=== PATIENT | female | born 1950 | race Two or more races ===

== ENCOUNTER 2016-07-06 15:44 | Inpatient (IN) | payer MEDICARE, MEDICAID ==
[~2016-07-06] VITALS: Ht 157.5 cm; Wt 65.3 kg
--- NOTE | ~2016-07-06 | CON ---
PATIENT'S NAME: TAL CARMEN [facility] AGE: 65 Y [address] ROOM: [address]6302 [place], [place] [address] LOCATION: GPCU ADMIT DATE: 07/06/2016 Consultation DISCHARGE DATE: FAMILY PHYSICIAN: Miguel Mckeon MD ATTENDING PHYSICIAN: Ben Wall DATE OF CONSULTATION: 07/07/2016 REFERRING PHYSICIAN: Gina Silva MD PATIENT OF: Miguel Mckeon MD Dear Dr. Mckeon: Thank you for asking me to see Ms. Carmen, who is a 65-year-old female patient. I had seen her for some shortness of breath, low heart rate, and dizziness as an outpatient in January. She came to the office with a friend and the history was mostly from her. She is mildly mentally challenged and does not recall events to the fullest details. It appears as if she has been falling for the past 3 years because that is a duration she has been using a cane. She does not volunteer any symptoms at all. Even on directly questioning whether she has any dizziness, she denied any dizziness until I specifically asked that "you had mentioned about dizziness in your referral." Then, she recollect having off and on episodes of dizziness that seemed to occur when she is up and walking in her kitchen and she will go and sit down and get the dizziness to go away shortly. She does not think she has ever passed out, but she seemed to have had several falls. Most of them appears to be accidental or mechanical more so than anything else. She denies lightheadedness. She does notice some palpitations, but these are not recurring to any great extent. She does not feel dizzy when she is having palpitations. She denies any chest pains. She is currently in functional class II-III. She apparently goes grocery shopping and has to stop several times because of shortness of breath. There is no paroxysmal nocturnal dyspnea or orthopnea. She has some minimal ankle swelling at times. She does not have any structured exercise program, but walks around a parking lot in her apartment twice a day for about 5 minutes each. The patient has history of diabetes. She smokes about three cigarettes a day. Her cholesterol is unknown. Her blood pressure has been variable. She was found to have slow heart rate and was the main reason I am seeing her. There is significant family history of premature coronary artery disease. There is no prior history of RI or angina or nitroglycerin use. There is no history of rheumatic fever, heart murmur, heart failure, dilated [facility] AGE: 65 Y [address] ROOM: [place] [address] LOCATION: GPCU ADMIT DATE: 07/06/2016 Consultation DISCHARGE DATE: FAMILY PHYSICIAN: Miguel Mckeon MD ATTENDING PHYSICIAN: Ben Wall or enlarged heart. She does have "erratic heartbeats." MEDICATIONS: Her medications at this time include: 1. Aspirin 81 mg a day. 2. Fosamax 70 mg a day. 3. Lipitor 40 mg a day. 4. Lexapro 10 mg a day. 5. Lantus 10 units a day. 6. Metformin 500 b.i.d. 7. Omeprazole 20 mg a day. 8. Calcium 500 t.i.d. 9. Tramadol 50 one to two every 4 hours as needed. ALLERGIES: NO KNOWN DRUG ALLERGIES. PAST MEDICAL HISTORY: 1. History of mildly challenged mentally. 2. Anxiety and depression. 3. GERD. 4. History of hemorrhoid surgery. 5. History of eye surgery. 6. Surgery on her esophagus. ALLERGIES: NO KNOWN DRUG ALLERGIES. SOCIAL HISTORY: The patient lives alone in. She denies abusing alcohol. She does smoke a few cigarettes a day. Her appetite and weight have been stable. Sleep is fair. FAMILY HISTORY: Positive for premature coronary artery disease in two brothers. REVIEW OF SYSTEMS: 1. Multiple falls as mentioned earlier. 2. Some overall weakness of unknown etiology. PHYSICAL EXAMINATION: VITAL SIGNS: Her blood pressure is anywhere between 80 systolic to 120 systolic. Heart rate is anywhere between the low 30s to mid 40s. Respiration is 16. Afebrile. Oxygen saturation is 95% on room air. HEENT: Reveals bilateral ptosis. NECK: Unremarkable. PATIENT'S NAME: [facility]CE[facility] AGE: 65 Y [address] ROOM: [place] [address] LOCATION: GPCU ADMIT DATE: 07/06/2016 Consultation DISCHARGE DATE: FAMILY PHYSICIAN: Miguel Mckeon MD ATTENDING PHYSICIAN: Ben Wall LUNGS: Clear to auscultation. HEART: Reveals regular rhythm and rate. ABDOMEN: Soft. EXTREMITIES: Reveal no edema. CENTRAL NERVOUS SYSTEM: Overall appears to be intact. The patient has recently fallen on her right wrist which was the one of the reasons why she got admitted. ASSESSMENT: Severe bradycardia of which she is possibly mildly symptomatic with dizziness. She sometimes runs low blood pressures as well. She is not on any AV blocking agents. In January, she did have thyroid function studies done which was normal. Her echocardiogram done in January showed normal EF with mild LVH. She had a stress test done which showed normal EF and mild small distal anterior apical moderate fixed defect consistent with soft tissue attenuation. She also had a 48-hour Holter monitor which essentially revealed regular sinus rhythm ranging from 42 beats a minute to 111 beats a minute without any significant pauses or SVEs. She had a couple of short runs of SVT at a rate of 110 beats a minute or so. Based on the evaluation in January, I did not perceive any further. Today, clearly, her heart rate is even lower than it was in January 2016. Given her overall weakness as well as ptosis, I will ask Dr. Castanon to take a look at it to make sure that we are not missing any neuromuscular disorders, some of which may have some relation to significant bradycardia as well. It is very likely that she might need a permanent pacemaker placement before she is discharged. Her UA looks as if she has urinary tract infection, and we will wait for the antibiotics take effect for a day or two before proceeding with pacemaker placement. Again, I appreciate this opportunity to participate in the care of Ms. Carmen. MD PRECIOUS MANZANARES/dalia /[id number] d: 07/07/169 t: 07/12/16 1453, CONSULTATION REPORT
--- NOTE | ~2016-07-06 | HP ---
PATIENT'S NAME: KEVIN ZENGHA [facility] AGE: 65 Y [address] ROOM: [place] [address] LOCATION: GPCU ADMIT DATE: 07/06/2016 History & Physical DISCHARGE DATE: FAMILY PHYSICIAN: Miguel Mckeon MD ATTENDING PHYSICIAN: Kelley Wall DATE OF SERVICE: CHIEF COMPLAINT: Fall. HISTORY OF PRESENT ILLNESS: The patient is a 65-year-old female who came in to the emergency room with complaints of wrist pain after sustaining a fall. States she was getting up from the bathroom and tripped on her pajamas. Absolutely denies any type of syncopal episode, any lightheadedness, etc. States that it was purely a mechanical fall. She did have x-rays in the ER which apparently checked out wrist mtz and that her blood pressure systolic in the 80s over 50s and was having bradycardic episodes into the 50s. Apparently, she has been seeing Dr. Silva for further workup of this. She is not symptomatic though when she is in the 50s. She is not very compliant with her trips in to see Dr. Miguel Mckeon who is her primary care doctor. PAST MEDICAL HISTORY: Significant for GERD; anxiety; diverticulosis; type 2 diabetes mellitus, which is insulin dependent; medication noncompliance; hyperlipidemia; mental retardation since ; osteoporosis; and insomnia. Also has a history of palpitations and bradycardia. PAST SURGICAL HISTORY: Anal sphincterotomy, right lateral in 2008; appendectomy; cataract surgery bilaterally; hemorrhoid surgery; and tubal ligation. ALLERGIES: NONE. MEDICATIONS: Chronic medication list according to our chart shows: 1. Lantus 10 units once a day. 2. Lexapro 10 mg once a day. 3. Metformin 500 mg 2 tablets b.i.d. 4. [place] p.r.n. pain. 5. Omeprazole 20 mg daily. 6. [place] calcium 1250 mg daily. 7. Sertraline 50 mg daily. [facility] 65 Y [address] ROOM: [place] [address] LOCATION: GPCU ADMIT DATE: 07/06/2016 History & Physical DISCHARGE DATE: FAMILY PHYSICIAN: Miguel Mckeon MD ATTENDING PHYSICIAN: Kelley Wall 8. Simvastatin 20 mg daily. 9. Ultram p.r.n. REVIEW OF SYSTEMS: As per HPI, otherwise noncontributory. PHYSICAL EXAMINATION: GENERAL: The patient is nontoxic, 65-year-old, in no acute distress. HEENT: Normocephalic and atraumatic. Ears, TMs are clear and intact bilaterally. Nose patent. Throat clear. VITAL SIGNS: Blood pressure now is 185/81, pulse 54, respirations 12, O2 saturation 96% on room air. Orthostatics show standing of 163/74, sitting 185/81, lying 152/105. Temperature 97.8. HEART: Regular rate and rhythm without audible murmur. LUNGS: Clear to auscultation bilaterally without wheezes, rhonchi, or rales. Normal respiratory effort. ABDOMEN: Soft, nontender, nondistended. Bowel sounds are positive. There is no hepatosplenomegaly. No guarding or rebound. EXTREMITIES: No clubbing, cyanosis, or edema. NEUROLOGIC: No focal deficits. ASSESSMENT AND PLAN: 1. Hypotension. Initially, this was in the ER, but she responded nicely to fluid bolus, and actually right now, she is hypertensive. No further treatment for that. She does not show any signs of sepsis. 2. Sinus bradycardia. Cardiology to see and get their recommendations. It sounds like this is not truly a syncopal episode per her history, but more of a fall. 3. Right-sided wrist pain, has been ruled out for fracture. She will continue with her splint. 4. Mildly elevated CK-MB x1 with normal troponin. We will go ahead and trend her out with serial enzymes. 5. Type 2 diabetes mellitus. We will continue sliding scale and her usual insulin. Dr. Mckeon will assume care in the morning. KELLEY WALL MD TAB/modl /[id number] D: 028 T: 637 HISTORY & PHYSICAL
--- NOTE | ~2016-07-06 | DS ---
PATIENT'S NAME: TAL ZENG [facility] AGE: 65 Y [address] ROOM: [address] [address] LOCATION: GPCU ADMIT DATE: 07/08/2016 Discharge Summary DISCHARGE DATE: 07/12/2016 FAMILY PHYSICIAN: Miguel Dias MD ATTENDING PHYSICIAN: Ben Wall DISCHARGE DIAGNOSES: 1. Hypertension. 2. Bradycardia. 3. Falls. 4. Bilateral ptosis. 5. Neuromuscular weakness. DISCHARGE MEDICATIONS: 1. Prilosec 20 mg daily. 2. Calcium 500 mg 1 tablet 3 times daily. 3. Fosamax 70 mg weekly. 4. Metformin 1000 mg twice daily. 5. Tramadol 50 mg 1 to 2 tablets every 6 hours as needed. 6. Lexapro 10 mg daily. 7. Lipitor 40 mg daily. 8. Lantus 10 units at bedtime. HISTORY OF PRESENT ILLNESS: Please see history and physical for details. HOSPITAL COURSE: The patient admitted to the hospital secondary to hypotension and sinus bradycardia and overall feeling very weak. She was seen in consultation by Dr. Silva. She recommend she undergo pacemaker placement. She underwent this without any complications. Neurology also had seen her in consultation with their recommendations. She was ambulating without difficulty and doing very well prior to discharge. She was discharged home in stable condition. Appropriate followup in place. LAB AND X-RAY: Please see chart for details. MIGUEL DIAS MD CSM/franciscal /[id number] d: 08/24/16 0416 t: 08/24/16 1331, DISCHARGE SUMMARY
--- NOTE | ~2016-07-06 | ECHO ---
Cardiac Stress Test Demographics Patient Name TAL ZENG Date of Study 07/08/2016 Patient Number [id number] Visit Number [id number] Date of 1950 Room Number G6302 Gender Female Number Age 65 year(s) Referring Shira Fuentes Interpreting Shira Fuentes Physician Physician MD [facility] Marcelo MD Physician Ordering [facility] Fuentes [employer] Bi Consultant Physician Supervising [facility] Stress Roller Hand Svetlana Rausch RVT, MD/AFRICAP RD Nurse Willi Schneider RN Procedure Type of Study Cardiac Stress Test:TREADMILL STRESS TEST. Procedure Date Date: 07/08/2016 Start: 10:15 AM Study Location: Echo Lab Indications:Bradycardia. Patient Status: Routine Conclusions Summary Baseline HR in 30S to 40S.On Arely protocol patient could not walk.She did start at 0.9 mph and the TM speeded up once in approximately 2 mins.At 8:37 mins her HR was 55 bpm with occasional bigeminal PVCs and a few beat run of SVT.Her BP did incrementally increase.She was getting fatigued and was starting to lag behind.No chest pain or SOB.TM had to be stopped. A: Severe chronotropic incompetence. Rec:Dual chamber PPM. Risk Factors - The patient's risk factor(s) include: orally-treated diabetes mellitus. - The patient has a current/recent (within 1 year) tobacco history. Stress Protocol Stress Predicted HR: 154 bpm Signature dtt: Gina Silva dtd: 07/08/16 1015 Physician Self Edit
--- NOTE | ~2016-07-06 | CON ---
PATIENT'S NAME: TAL CARMEN [facility] AGE: 65 Y [address] ROOM: [address] [place] [address] LOCATION: GPCU ADMIT DATE: 07/08/2016 Consultation DISCHARGE DATE: FAMILY PHYSICIAN: Miguel Mckeon MD ATTENDING PHYSICIAN: Ben Wall DATE OF CONSULTATION: 07/08/2016 REFERRING PHYSICIAN: Gina Silva MD The patient was seen in neurologic consultation on 08 July 2016. REASON FOR CONSULTATION: I was asked to see Ms. Carmen for the possibility that she may have a primary neurologic issue associated with a now diagnosed bradycardic arrhythmia plus evidence on physical exam of bilateral ptosis and recent episodes of falling. HISTORY OF PRESENT ILLNESS: Ms. Carmen is a delightful 65-year-old female patient who says that she has had apparent falls at home. She denies that the falls were associated with dizziness or any type of loss of consciousness. She says that she fell at least 4 times during the course of this year. One time she said that she tripped on her own pajamas and that prompted her to come to the hospital here; however, she describes certain falls have occurred outside of her home, one time when she was taking out the garbage and she went pickers material handlers a stick on the ground and apparently had fallen over. She describes this as either being clumsy or associated with a very windy day. She is somewhat concerned about her falls in general. There were other falls that have either taken place either inside of the home or outside of the home. In discussions with the patient concerning any focal weakness to her arms and legs, this gets difficult as she is a very poor historian and often does not understand the questions and is easily led on with the questions. Sometimes, she may answer in the affirmative with certain questions, but other times she may account the prior answers with different answers. In general, I asked her directly if she had any weakness such as brushing her hair, lifting her arms, and getting up and down stairs, she says that in general she did not feel weak in her arms more than usual and because she basically leads sedentary life and rarely is put in a position of exercising, she does not know if she could not take any stairs. She denies any pain or fatigue of her muscles. She is noted to have bilateral ptosis of her eyes and according to the patient, this has actually seen in her sister. The patient does not elaborate on any further issues such as muscle weakness elsewhere in her body. She denies any double vision. She denies any problems with chewing, swallowing, hoarseness, or change in the quality of her voice. She further denies any focal weakness or numbness of the limbs. She does not have any history of stroke. She has not been worked up in the past for any myasthenic process as far as I could tell. There were PATIENT'S NAME: TAL CARMEN [facility] AGE: 65 Y [address] ROOM: [place] [address] LOCATION: GPCU ADMIT DATE: 07/08/2016 Consultation DISCHARGE DATE: FAMILY PHYSICIAN: Miguel Mckeon MD ATTENDING PHYSICIAN: Ben Wall no autoimmune diseases. PRIOR MEDICAL HISTORY: Consistent with diabetes type 2, which is insulin dependent; history of gastroesophageal reflux; hyperlipidemia; as well as some likely mild mental retardation. She does have a history of cardiac arrhythmia, mostly associated with bradycardia. PAST SURGICAL HISTORY: Included appendectomy, cataract surgery bilaterally, and an anal sphincterectomy. ALLERGIES: NO KNOWN DRUG ALLERGIES. REVIEW OF SYSTEMS: The patient describes falling over the course of at least the past year. She is nonspecific about any events of dizziness, lightheadedness with the falls, these seem to be mechanical falls, unrelated to loss of consciousness. She directly denies any focal weakness of her limbs, but she is noted to have bilateral ptosis and some bulbar weakness on exam. Otherwise, 10-point review of systems except for history of diabetes was essentially negative. CURRENT MEDICATIONS: Here in the hospital include, 1. Potassium chloride supplementation 40 mEq p.o. b.i.d. 2. Ciprofloxacin 500 mg p.o. b.i.d. 3. Atropine sulfate 0.5 mg IV p.r.n. 4. Lexapro 10 mg p.o. daily. 5. Aspirin 81 mg p.o. daily. 6. Pantoprazole 40 mg p.o. daily. 7. Atorvastatin 40 mg p.o. q.h.s. PHYSICAL EXAMINATION: GENERAL: Today, the patient is sitting up in a chair and is in no acute distress. She does not have much spontaneous conversation. She mostly answers in the affirmative with 1 or 2 short answer questions. She does not elaborate on her answers. There is often some confabulation of her answers and somewhat poor judgment and insight into her prior medical history. VITAL SIGNS: Pulse of 45 in the range of between 40 and 59, respirations 16, blood pressure 98/49, and temperature 97.5. Her weight is 65 kg. NEURO: Cranial Nerves: There is bilateral ptosis that does fatigue with upward gaze after 1 minute. She does not complain about any diplopia. She has no apparent ophthalmoplegia. There is some diplegia of her muscles of facial expression. Her uvula elevates normally. Her palate is midline. PATIENT'S NAME: TAL CARMEN [facility] AGE: 65 Y [address] ROOM: [address] [place], [place] [address] [facility] AD[facility] DATE: 07/08/2016 Consultation DISCHARGE DATE: FAMILY PHYSICIAN: Miguel Mckeon MD ATTENDING PHYSICIAN: Ben Wall Puffing out her cheeks, she is weak on doing this action and a sense of some weakness on whistling. Her voice is not slurred. There is no hoarseness. Shoulder shrug is normal. Extension and flexion of the head appear to be normal. There is give-way weakness in the bilateral upper extremities, mostly proximally. Distally, she has fairly good service parts coordinator power in left upper extremity and forearm power is normal; however, in the right upper extremity, there is a wrist immobilizer due to her recent injury to her wrist. Her lower extremities grossly 4+/5 power in the proximal muscles on hip flexion and leg extension. Dorsiflexion, plantar flexion, eversion, inversion of the feet are 5/5. On ambulation, the patient shows normal gait, not wide based though, she does walk slowly and cautiously. She has a negative Romberg's. Reflexes are symmetric and +1 at the biceps, triceps, brachioradialis, and patellar. Ankle jerk reflexes are absent. Plantar reflexes are neutral. IMPRESSION: Ms. Carmen is a 65-year-old female patient who likely has a longstanding ptosis. It is quite possible that she does have genetic muscular issues such as a neuromuscular junction pathology. It is reported that even her sister has bilateral ptosis. Since she does not voice necessarily weakness of her upper extremities that improves with rest and has gotten worse over time, it is hard to say if this is an autoimmune type of myasthenia gravis. We would get some idea if she does have autoimmune myasthenia gravis by checking antibodies to acetylcholine receptors. Furthermore, we should check for anti- MuSK antibodies that are more specific for ocular myasthenia. Again, she does not have any double vision, but only ptosis, so it is difficult to say if she truly has ocular signs of myasthenia. I do believe that she has some bulbar weakness, which is subtle, but nonetheless can be due to some type of myasthenic syndrome, perhaps she even has a congenital myasthenia which would be from a and thus would be best worked up with a genetic profile. It is usually not done in the hospital, but would be best done as an outpatient in our clinic where we could send for a panel of tests for a genome testing, may add some information concerning both her and her sister's apparent bilateral ptosis and the patient having likely issues with muscular weakness. It is not out of the question that if she has a myasthenic syndrome that she may experience cardiac abnormalities. This is well documented in the literature that conduction issues of the heart are often possible with myasthenic syndromes and certainly it is possible that she may even have an autoimmune type of myasthenia as this is known as well to affect the heart. Antibodies to acetylcholine receptors are only to skeletal muscles, but is known that there are even antibodies to cardiac muscles. One would probably favor a congenital myasthenia if we are looking at progressive weakness with time and even developing cardiac arrhythmias such as bradycardia. Thus, the genetic workup is certainly necessary as an outpatient. I do believe that the patient would likely be stable for having a permanent pacemaker placed for her symptomatic bradycardia. We will continue to follow the patient again here in PATIENT'S NAME: TAL CARMEN [facility] AGE: 65 Y [address] ROOM: [address] [place], [place] [address] LOCATION: [facility] ADMIT DATE: 07/08/2016 Consultation DISCHARGE DATE: FAMILY PHYSICIAN: Miguel Mckeon MD ATTENDING PHYSICIAN: Ben Wall the hospital as well as in the clinic on followup. MD MILO CONNOR/dalia /[id number] d: 07/10/16 1947 t: 07/14/16 1402, CONSULTATION REPORT
--- NOTE | ~2016-07-06 | ER ---
[facility] AGE[facility] 65 Y [address] ROOM: [address] [address] LOCATION: GPCU ADMIT DATE: 07/06/2016 ER/Outpatient Report DISCHARGE DATE: FAMILY PHYSICIAN: Miguel Mckeon MD ATTENDING PHYSICIAN: Ben Wall Time of Arrival: 1544 hours. Time of Evaluation: 1555 hours. IDENTIFICATION: A 65-year-old female. CHIEF COMPLAINT: Fall with right wrist injury. HISTORY OF PRESENT ILLNESS: The patient is a 65-year-old female with some borderline functioning, who lives at home alone. Does have Home Health come in once a week. Today, she was getting up from the toilet and fell. She said she got tangled up in her pajamas, that was about 7:00 a.m. Throughout the day, she has had increasing complaints of right wrist pain. When she was put in by the nurse, though her blood pressure was 84/54, she denies any lightheadedness or dizziness. I did contact her home health nurse, Sheryl, who said that she has had heart rate mid to upper 40s; has been seeing Dr. Moreno for this. She had an echo and a stress test. Her blood pressure from [facility] is usually 120/70. She had her lipid-lowering agent changed on May 19 and aspirin was added. Since then, 4 weeks ago, she fell; 2 weeks ago, she fell. Dr. Mckeon gave her some tramadol, which is not in her medications that are dispensed from the pharmacy, but the home health nurse has been monitoring those to make sure that they are taken appropriately. She denies any fever or chills. She denies any chest pain. She denies any lightheadedness or dizziness. PAST MEDICAL HISTORY: ALLERGIES: NO KNOWN DRUG ALLERGIES. CURRENT MEDICATIONS: The patient was unsure of her medications, but we did contact [facility] for medication list, which includes, 1. Aspirin 81 mg daily. 2. Fosamax 70 mg weekly. 3. Lipitor 40 mg daily. 4. Lexapro 10 mg daily. 5. Lantus 10 units daily. PAT[facility]'S NAME: [facility] AGE: 65 Y [address] ROOM: [id number] [place], [place] [address] [facility] ADMIT DATE: 07/06/2016 ER/Outpatient Report DISCHARGE DATE: FAMILY PHYSICIAN: Miguel Mckeon MD ATTENDING PHYSICIAN: Ben Wall 6. Metformin 500 mg b.i.d. 7. Omeprazole 20 mg daily. 8. Calcium 500 mg t.i.d. 9. Tramadol 50 mg 1 to 2 p.o. q.4 hours p.r.n. MEDICAL PROBLEMS: Diabetes mellitus, insulin requiring and bradycardia. PRIOR SURGERIES: Eye surgery, gastric emptying, hemorrhoid surgery, and tubal ligation. SOCIAL HISTORY: The patient does live alone. Influenza was in December of 2015. Pneumococcus was in 12/2011. Tobacco use 1/4 to 1/2 pack per day. Alcohol, occasional. Drug use, denies. REVIEW OF SYSTEMS: All systems reviewed and negative other than what is noted in the HPI. PHYSICAL EXAMINATION: VITAL SIGNS: Weight 66 kg. Blood pressure 84/54, pulse 53, respirations 16, temperature 97.5, and saturations 96% on room air. GENERAL: A 65-year-old female, in no acute distress. HEENT: Head: Normocephalic, atraumatic. Eyes: Pupils equal and reactive to light and accommodation. Extraocular movements intact. Nose: Mucosa pink. No lesions. Mouth: No lesions. Pharynx benign. NECK: Supple. No lymphadenopathy. LUNGS: Clear to auscultation. HEART: Regular rate and rhythm. ABDOMEN: Soft, nondistended, nontender. SKIN: [place], warm, and dry. No lesions or rashes noted. NEURO: No focal deficit. EXTREMITIES: Right forearm initially tender to palpation, on recheck no tenderness; same with the wrist, initially tender in the snuff box, repeat no tenderness. She has no swelling or ecchymosis noted. LABORATORY DATA AND X-RAYS: Orthostatic blood pressures: Lying 124/73, sitting 142/58, standing 123/64. Shortly after that was taken, though, she again dropped her blood pressure to 90 and then again to 84, again asymptomatic. Hemoglobin 13.1, hematocrit 39.5, platelets 232, white count 9.4 with a normal differential. Sodium 140, potassium 3.8, chloride 104, CO2 of 28, BUN 11, creatinine 0.5. Blood sugar 173. Liver enzymes normal. Magnesium 1.5. CPK 180; CK-MB 5.2, which is elevated. Troponin I less than 0.04. ProBNP 62. INR 0.92. Notes from Dr. Silva's office include an echocardiogram from February 08, 2016, which PATIENT'S NAME: TAL ZENG [facility] AGE: 65 Y [address] ROOM: [place] [address] LOCATION: GPCU ADMIT DATE: 07/06/2016 ER/Outpatient Report DISCHARGE DATE: FAMILY PHYSICIAN: Miguel Mckeon MD ATTENDING PHYSICIAN: Ben Wall showed mild LVH with normal EF and wall motion, mild mitral regurgitation, mild tricuspid regurgitation with normal pulmonary pressures. The reason she saw Dr. Silva on May 18 was she had a fall and her heart pounds "so hard." At that visit, her simvastatin was discontinued and she was placed on Atorva 40 mg daily. She had a stress test done on February 17, 2016, showing moderate fixed defect anterior apical consistent with soft tissue attenuation, EF 79%, normal wall motion. EKG here shows sinus bradycardia with borderline first-degree AV block. Heart rate 49. She has T-wave inversion in V1, V2, V3 and flattened T-wave in V4. No acute ST elevation or depression. Chest x- ray, 1 view, borderline cardiomegaly, no acute infiltrate, pending Radiology over-read. X-ray of her right wrist and forearm shows a tiny flake-like ossific density at the dorsum of the carpus on the lateral view, could be a small triquetral avulsion. She was re-examined and has absolutely no pain in that area. IMPRESSION: 1. Right wrist possible triquetral avulsion injury, but no pain. She was placed in a wrist splint. 2. Hypotension, uncertain etiology. 3. Bradycardia of uncertain etiology. 4. Diabetes mellitus, insulin requiring. 5. Frequent falls, 3 falls in the last 1 month, may be related to her blood pressure and her heart rate. 6. Elevated CK-MB. PLAN: For admission, observation per Dr. Wall for Dr. Mckeon. Consulting, Dr. Silva. I did notify Dr. Barajas. She is being given a 500 mL fluid bolus followed by 150 mL/h. A 2-hour cardiac enzymes will be obtained as well as blood cultures x2, lactate, procalcitonin, urine, and urine culture. MD GERMAIN CARDONA/dalia /[id number] d: 07/07/16 0011 t: 07/08/16 1943, OUTPATIENT REPORT
--- NOTE | ~2016-07-06 | OR ---
PATIENT'S NAME: TAL ZENG [facility] AGE: 65 Y [address] ROOM: [place] [address] LOCATION: GPCU ADMIT DATE: 07/08/2016 OR/Procedure Report DISCHARGE DATE: FAMILY PHYSICIAN: Miguel Mckeon MD ATTENDING PHYSICIAN: Ben Wall SURGEON: Gina Silva MD SERVICE DELIVERY MANAGER: DATE OF PROCEDURE: 07/11/2016 PROCEDURE PERFORMED: Symptomatic severe bradycardia permanent pacemaker. DESCRIPTION OF PROCEDURE: After obtaining informed consent, the patient was brought to the cardiac catheterization laboratory in an empty stomach and prepped and draped using standard sterile precautions. 1% Xylocaine was used to obtain local anesthesia over the left subclavian site. Modified Seldinger technique was used to place 2 guidewires into the IVC. A 3 cm long incision was made connecting the 2 guidewires. Blunt dissection was used to make the pacemaker pocket. This was then followed by placement of ventricular lead, which is a [employer] Viewdle MRI Is-1 bipositive 52 cm, model #7741, serial #[id number]. This had an R-wave of 12.7. Pacing threshold was 0.5 V at a pulse width of 0.4 milliseconds. Pacing impedance is 1371 ohms. Current is 0.4 milliamperes. This lead was sewn to the underlying muscle. Next, the atrial lead was placed which is a [employer] Kuddle MRI IS-1 bipositive fixation, model #7740, serial #[id number]. This had a stimulation threshold of 1.3 V at a pulse width of 0.4 milliseconds. P wave was 2.6 mV. Impedance is 821 ohms. Current is 1.6 milliamperes. This lead was also sewn to the underlying muscle and then the device was attached, which is Viibaro MRI DR IS-1, model # L111, serial #[id number]. The device was attached to the underlying muscle with 0 silk. The juan j parameters are DDDR mode with the a IQ off, lower rate of 60, upper rate of 130, MSR 130, PAV delay is 140-240 milliseconds. DERIAN delay is 129-220 milliseconds. AV search is onto to 330 milliseconds. POR 240 millisecond to 330 milliseconds. The sensor right ray pacing with MV on motion based pacing with accelerator on. Sensing method is fixed. Ventricular tachycardia EGM storage is 0-160. ATR mode switch is 0-160. Atrial flutter response is off. VRR is off. Rate smoothing is off. Sudden Juan J response is off. PaceSafe RVAC is on. The right atrial lead was left at a sensitivity of 0.5 mV with auto output at 0.4 milliseconds and right ventricular lead was left at a sensitivity of 2.5 mV with auto output at 0.4 milliseconds. The patient tolerated the procedure well and there were no complications PATIENT'S NAME: TAL ZENG [facility] AGE: 65 Y [address] ROOM: [place] [address] LOCATION: GPCU ADMIT DATE: 07/08/2016 OR/Procedure Report DISCHARGE DATE: FAMILY PHYSICIAN: Miguel Mckeon MD ATTENDING PHYSICIAN: Ben Wall noted. MD PRECIOUS MANZANARES/franciscal /[id number] d: 07/11/162146 t: 07/12/16 1455, OPERATIVE SUMMARY
[2016-07-06 16:53] LABS: BASOPHIL # 0.1 K/uL (0.0-0.2); BASOPHIL % 0.6 %; EOSINOPHIL # 0.5 K/uL (0.0-0.5); HEMATOCRIT 39.5 % (33.0-46.0); HEMOGLOBIN 13.1 g/dL (10.0-15.0); IMMATURE GRANULOCYTE % 0.3 %; LYMPHOCYTE % 31.8 %; MCH 30.5 pg (27.0-34.0); MCHC 33.2 gm/dL (32.0-36.5); MCV 91.9 fl (83.0-98.0); MONOCYTE # 0.8 K/uL (0.0-1.0); MONOCYTE % 8.4 %; MPV 11.1 fl (9.4-12.4); NEUTROPHIL # (ANC) 5.1 K/uL (1.8-7.8); NEUTROPHIL % 53.9 %; NRBC % 0 /100WBC (0-0.00); PLATELET COUNT 232 K/uL (150-450); WBC 9.4 K/uL (4.0-11.0)
[2016-07-06 17:01] LABS: INR - (THERAPEUTIC) 0.92 (0.92-1.07); PROTIME 9.7 SECONDS (9.8-11.4); PTT 29 SECONDS (25-32)
[2016-07-06 17:12] LABS: ALBUMIN 3.6 gm/dL (3.5-5.0); ALK PHOS 76 IU/L (33-138); ALT 12 IU/L (12-78); ANION GAP 11.8 (10.0-19.0); AST 16 IU/L (10-40); BLOOD UREA NITROGEN 11 mg/dL (6-24); CALCIUM 9.1 mg/dL (8.5-10.5); CHLORIDE 104 mMol/L (96-110); CO2 28 mMol/L (22-32); CPK 180 IU/L (21-215); CREATININE 0.5 mg/dL (0.5-1.1); ESTIMATED GFR (MDRD EQUATION) > 60; MAGNESIUM 1.5 mg/dL (1.8-2.6); POTASSIUM 3.8 mMol/L (3.7-5.1); SODIUM 140 mMol/L (135-145); TOTAL BILIRUBIN 0.4 mg/dL (0.0-1.5); TOTAL PROTEIN 7.8 g/dL (6.0-8.4)
[2016-07-06 19:36] LABS: CPK 169 IU/L (21-215)
[2016-07-06] MEDS ORDERED: LEXAPRO10 MG PO (19:57)
[2016-07-06] MEDS ORDERED: ASPIRIN LO-DOSE81 MG PO (19:58)
[2016-07-06] MEDS ORDERED: PRILOSEC20 MG PO (19:58)
[2016-07-06] MEDS ORDERED: OYSTER SHELL C500 MG PO (19:58)
[2016-07-06] MEDS ORDERED: FOSAMAX70 MG PO (19:59)
[2016-07-06] MEDS ORDERED: LIPITOR40 MG PO (19:59)
[2016-07-06] MEDS ORDERED: GLUCOPHAGE500 MG PO (20:00)
[2016-07-06] MEDS ORDERED: LANTUS SOL100 UNIT/1 SUB-Q (20:00)
[2016-07-06] MEDS ORDERED: ULTRAM50 MG PO (20:00)
--- NOTE | 2016-07-06 20:22 | NUR ---
Patient is 65 yo female admitted this evening from the Emergency Room. She states she fell twice today and then her right arm started hurting. patient lives in the independent living apartments at [facility]. Does seem to have some confusion as she doesn't give consistent answers to questions. IV is infusing in left hand without erythema or edema noted at site. Education is given as documented. patient denies questions at this time. pneumatics are on bilat calves. patient edyta well. call light in reach. denies needs. Report is given to GOLDEN Brown.
[2016-07-07 01:02] LABS: CPK 168 IU/L (21-215)
--- NOTE | 2016-07-07 05:41 | NUR ---
Significant Event: Patient admitted as observation. History of frequent falls and low heart rate. Patient fell in bathroom at home. Went to ER for hurt wrist. X-Rays show no breaks to arm or wrist. Patient's SBP in 80s in ER. HR in low 50s. CK-MB elevated to 5.2. Dr. Wall admitted to PCU. Patient arrived to floor at 1920. Dr. Miguel Mckeon regular doctor. Also sees Dr. Moreno. Patient alert and oriented x3. Makes odd statements frequently. Talks to self/tv frequently. Doesn't follow conversation well. Non-reliable historian. HR 38-58. SBP 130s-200s. Afebrile. On RA. Dr. Wall aware of patient condition. Cardiology to consult today. Complaints of mild pain to right wrist. Wrist and arm in sling. Adjusted and elevated with relief. Orthostatics done multiple times this shift. ACHS accuchecks. Left hand PIV saline locked. Up with 1 assist and cane to bathroom after orthostatics done. Fequency with urination. Slept little. Patient calm and cooperative with all cares. Follow up: Labs this morning. Dr. Moreno to see today. Will continue to monitor HR and BP.
[2016-07-07 06:18] LABS: BASOPHIL % 0.5 %; EOSINOPHIL # 0.5 K/uL (0.0-0.5); EOSINOPHIL % 5.7 %; HEMATOCRIT 37.1 % (33.0-46.0); HEMOGLOBIN 12.4 g/dL (10.0-15.0); IMMATURE GRANULOCYTE % 0.2 %; LYMPHOCYTE # 2.9 K/uL (0.8-4.0); LYMPHOCYTE % 36.1 %; MCH 30.8 pg (27.0-34.0); MCHC 33.4 gm/dL (32.0-36.5); MCV 92.3 fl (83.0-98.0); MONOCYTE # 0.7 K/uL (0.0-1.0); MPV 11.2 fl (9.4-12.4); NEUTROPHIL # (ANC) 3.9 K/uL (1.8-7.8); NEUTROPHIL % 48.5 %; NRBC % 0 /100WBC (0-0.00); PLATELET COUNT 209 K/uL (150-450); RBC 4.02 M/uL (3.50-5.50); RDW-CV 12.9 % (11.9-14.6); WBC 8.1 K/uL (4.0-11.0)
[2016-07-07 06:42] LABS: ALK PHOS 65 IU/L (33-138); ALT 13 IU/L (12-78); ANION GAP 8.3 (10.0-19.0); AST 13 IU/L (10-40); BLOOD UREA NITROGEN 10 mg/dL (6-24); CALCIUM 8.9 mg/dL (8.5-10.5); CHLORIDE 107 mMol/L (96-110); CO2 31 mMol/L (22-32); CPK 138 IU/L (21-215); CREATININE 0.5 mg/dL (0.5-1.1); ESTIMATED GFR (MDRD EQUATION) > 60; POTASSIUM 3.3 mMol/L (3.7-5.1); SODIUM 143 mMol/L (135-145); TOTAL BILIRUBIN 0.4 mg/dL (0.0-1.5); TOTAL PROTEIN 6.7 g/dL (6.0-8.4)
--- NOTE | 2016-07-07 11:37 | NUR ---
Introduced self and role of care management to patient. She lives in [place] at [facility]. She states that she is able to do all her own ADL's. She does use a cane. She states that she has family that will be available to assist as needed. She plans on returning home on discharge. She denies any needs at this time. Will continue to follow.
[2016-07-07 14:26] LABS: BILIRUBIN URINE NEGATIVE (NEGATIVE); BLOOD URINE 50 /UL (NEGATIVE); COLOR URINE YELLOW (YELLOW); GLUCOSE URINE 100 mg/dL (NEGATIVE); KETONE URINE NEGATIVE (NEGATIVE); LEUKOCYTES URINE 500 /UL (NEGATIVE); NITRITE URINE NEGATIVE (NEGATIVE); PROTEIN URINE NEGATIVE (NEGATIVE); TURBIDITY URINE 3+ (CLEAR); UROBILINOGEN URINE NORMAL (NORMAL)
[2016-07-07 14:57] LABS: BACTERIA URINE MANY (NEGATIVE)
--- NOTE | 2016-07-07 16:04 | NUR ---
Significant Event: pt pulse down to 32 while awake this am, asymptomatic,dr notified. Atropine and cart in room as instructed. Neuro to consult will be here tonight. Pt NPO at [address] coronary angiogram in am. Pt up to bathroom often for void, +UTI antibiotic started today. CX pending. Pt may need pacer in day or so, dr to talk to friend/pt. Pt alert but says off wall things at times don't make sense. Pt one asst with her cane up [place], off gait, unsteady at times. Follow up:
--- NOTE | 2016-07-08 04:52 | NUR ---
Significant Event: A/O person/place. Talks to self at times, says random statements often. Forgetful/confused. Bed/chair alarms on. VSS on RA. HRs 38-40s. SBP 120-130s. Atropine at bedside. Up 1 assist w/ cane. Splint on rt wrist, strong pulse present. Follow up: Continue to monitor per plan of care.
--- NOTE | 2016-07-08 11:43 | NUR ---
reviewed student charting and on the floor from [id number] ori [id number]
--- NOTE | 2016-07-08 15:34 | NUR ---
Significant Event: ALERT, ORIENTED TO SELF AND SURROUNDINGS. MAKES ODD STATEMENTS AT TIMES. AFEBRILE. HR ANIA 38-45/MIN. SATS 95% ON ROOM AIR. SBP 116-144. HAD CORONARY ANGIOGRAM AND TRENDMILL TESTING TODAY. NOTED CALCIFICATION IN LAD AND MILD CAD. Follow up: PLAN PACEMAKER IMPLANT ON MONDAY, DR. SORTO HAS DONE RISK/BENEFITS. NO ORDERS FOR PACEMAKER YET. NO PERMITS YET.
[2016-07-09 04:25] LABS: ANION GAP 10.6 (10.0-19.0); BLOOD UREA NITROGEN 17 mg/dL (6-24); CHLORIDE 105 mMol/L (96-110); CO2 28 mMol/L (22-32); CREATININE 0.5 mg/dL (0.5-1.1); ESTIMATED GFR (MDRD EQUATION) > 60; POTASSIUM 3.6 mMol/L (3.7-5.1); SODIUM 140 mMol/L (135-145)
--- NOTE | 2016-07-09 04:37 | NUR ---
Significant Event: A/O to person/place. Afebrile. Denies pain. Continues to say "off the wall" statements. Slightly unsteady on feet, uses cane with ambulation. Dr. Castanon visited with pt, wrote for labs. HRs in 40s. SBP 110-130s. Follow up: Awaiting orders for pacemaker procedure on monday.
--- NOTE | 2016-07-09 15:19 | NUR ---
Significant Event: pt hr 40-60 today. Pt up to bathroom often for voids. Mg 2gm iv today. K40meq po given 3.6 level. REcheck mg level at 1600 today. BG elevated 400s with mg and dextrose and pt eats for hours and hours , to recheck BG 2h post extra insulin. Pt friend here with her this afternoon. No c/o pain. Follow up:
--- NOTE | 2016-07-10 04:04 | NUR ---
Pt a/o. very talkative. makes off wall statements occasionally. HR 40-50's. SBP 100-120's. afebrile. ra. sba cane/gb. denies pain. Voids frequently and large amounts. FSBS at was 315. con't on cipro for uti. Plan: PPM monday, need diabetic ed-unsure of learning abilities/comprehension
--- NOTE | 2016-07-10 15:54 | NUR ---
Significant Event: pt up chair most of day, sleeps this afternoon. Pt brother here to visit her. SPlint intact good csm. BG better today not so high. Pt needs asst to order meals. Up to bathroom often. BM today large. LAB and Pacer in am. Follow up:npo at 0000.
--- NOTE | 2016-07-11 03:18 | NUR ---
Pt a/o. vss on RA. HR 40-60's. sba with cane. voids multiple times. denies pain Plan: PPM today
[2016-07-11 05:42] LABS: ANION GAP 9.5 (10.0-19.0); BLOOD UREA NITROGEN 13 mg/dL (6-24); CALCIUM 8.4 mg/dL (8.5-10.5); CHLORIDE 110 mMol/L (96-110); CO2 27 mMol/L (22-32); CREATININE 0.5 mg/dL (0.5-1.1); ESTIMATED GFR (MDRD EQUATION) > 60; MAGNESIUM 2.2 mg/dL (1.8-2.6); POTASSIUM 4.5 mMol/L (3.7-5.1); SODIUM 142 mMol/L (135-145)
--- NOTE | 2016-07-11 13:18 | NUR ---
A - PT SCREENED D/T LOS. ASSIST W/ ORDERING MEALS. PACER PLACEMENT TODAY. HT: 60" WT: 144# BMI: 27.0. LABS: ACCUCHECK REAS->400, GLU 146, ALB 3.0, A1C 8.0. MEDS: KCL, SSI, CIPRO, LEXAPRO, PROTONIX, LEVEMIR. DIET: NPO. INTAKE WAS 100% OF MEALS. NEEDS: 3258-4020 KCAL (20-25 KCAL/KG), 52-65 G PRO (0.8-1 G/KG), 1625 ML FLUID (25 ML/KG) D - NO NUTRITION RELATED DIAGNOSIS IDENTIFIED AT THIS TIME. I - GOAL FOR INTAKE TO REMAIN 75-100% FOR DURATION OF STAY. M/E - WILL ASSIST NEEDED.
--- NOTE | 2016-07-11 13:18 | NUR ---
Called and updated Cammy at [facility] of patient condition.
--- NOTE | 2016-07-11 18:49 | NUR ---
Significant Event: ALERT. UNABLE TO TELL MONTH AND YEAR. UNDERSTANDS SHE HAD A PACEMAKER PLACED AND THE REASONING FOR IT. LT. SUBCLAVIAN DUEL CHAMBER PACER PLACED TODAY. WENT TO SURGERY AT 1330 AND RETURND TO PCU ROOM AT 1532. ICE PACK TO SITE. Follow up: CONT. TO MONITER POST PACER IMPLANT.
--- NOTE | 2016-07-12 05:16 | NUR ---
Significant Event: Patient alert and oriented x3. Frequently makes odd/confused statements. Talks to self and TV. Often repeats same conversation multiple times while nurse is in the room. VSS. On RA. Splint continues to R. Wrist. Immobilizer left arm. Patient complains of pain only with movement. Refuses any pain medication. Up with 1 assist to bathroom. Calm and cooperative with all cares. Follow up: Home soon?
[2016-07-12 05:31] LABS: BASOPHIL % 0.4 %; EOSINOPHIL # 0.4 K/uL (0.0-0.5); EOSINOPHIL % 4.5 %; HEMATOCRIT 40.4 % (33.0-46.0); HEMOGLOBIN 13.2 g/dL (10.0-15.0); IMMATURE GRANULOCYTE % 0.2 %; LYMPHOCYTE # 2.5 K/uL (0.8-4.0); LYMPHOCYTE % 26.5 %; MCH 30.6 pg (27.0-34.0); MCHC 32.7 gm/dL (32.0-36.5); MCV 93.5 fl (83.0-98.0); MONOCYTE # 0.8 K/uL (0.0-1.0); MONOCYTE % 8.1 %; MPV 11.5 fl (9.4-12.4); NEUTROPHIL # (ANC) 5.6 K/uL (1.8-7.8); NEUTROPHIL % 60.3 %; NRBC % 0 /100WBC (0-0.00); PLATELET COUNT 219 K/uL (150-450); RBC 4.32 M/uL (3.50-5.50); RDW-CV 12.9 % (11.9-14.6); WBC 9.3 K/uL (4.0-11.0)
[2016-07-12 05:48] LABS: ANION GAP 11.5 (10.0-19.0); BLOOD UREA NITROGEN 13 mg/dL (6-24); CALCIUM 8.7 mg/dL (8.5-10.5); CHLORIDE 108 mMol/L (96-110); CO2 23 mMol/L (22-32); CREATININE 0.4 mg/dL (0.5-1.1); ESTIMATED GFR (MDRD EQUATION) > 60; POTASSIUM 4.5 mMol/L (3.7-5.1); SODIUM 138 mMol/L (135-145)
--- NOTE | 2016-07-12 11:00 | NUR ---
Social visit with patient today. We discussed dicahrge plans. Patient has splint on right wrist and arm immobilizer to left arm d/t pacer insertion 07/11. I inquired if she had someone that would be coming to stay with her at home. She states that she has a friend that will staying with her and taking care of her. She states that she will be fine going home with her friend to help out.
--- NOTE | 2016-07-12 13:18 | NUR ---
Patient has signed discharge orders on chart. Discharge orders faxed to Cammy at [facility].
--- NOTE | 2016-07-12 15:43 | NUR ---
1510: DISM. NOTE: ALERT. GIVEN HOME INSTRUCTONS TO PT. AND FRIEND. HOME HEALTH FOLLOWS AND AWARE OF HER DISM. FOLLOW UP APPT. DIET/ ACTIVITY HOME INSTRUCT POST PACEMAKER IMPLANT. PT. AND FRIEND VOICED UNDERSTANDING.
== END 2016-07-12 15:30 | disposition disaster alternative care site (69) | DRG 243 ==
LOC: GACC 15:44 → GPCU 18:16
PROVIDERS: Family Medicine; Internal Medicine Interventional Cardiology; ADMIT Family Medicine
PROC: 0JH607Z Insertion of Cardiac Resynchronization Pacemaker Pulse Generator into Chest Subcutaneous Tissue and Fascia, Open Approach (ICD-10-PCS; principal; 2016-07-11)
PROC: 02H63JZ Insertion of Pacemaker Lead into Right Atrium, Percutaneous Approach (ICD-10-PCS; 2016-07-11)
DX: I47.2 Ventricular tachycardia (principal); N39.0 Urinary tract infection, site not specified; E11.9 Type 2 diabetes mellitus without complications; E78.5 Hyperlipidemia, unspecified; F41.9 Anxiety disorder, unspecified; K21.9 Gastro-esophageal reflux disease without esophagitis; M81.0 Age-related osteoporosis without current pathological fracture; G47.00 Insomnia, unspecified; M25.531 Pain in right wrist; W18.30XA Fall on same level, unspecified, initial encounter; Z87.891 Personal history of nicotine dependence
CPT/HCPCS: A9270; C1785; C1898; G0378; J0461; J0690; J2250; J3010; J3475; J3480; J7030; Q9967